=== PATIENT | male | born 1955 | race Caucasian/White ===

== ENCOUNTER 2021-03-23 14:57 | Inpatient (IN) | payer MEDICARE, OTHER ==
[~2021-03-23] VITALS: Ht 177.8 cm; Wt 91.6 kg
[2021-03-23 16:03] LABS: BASOPHILS # (AUTO) 0.1 /CMM (0.0-0.2); BASOPHILS % (AUTO) 0.6 % (0.0-2.0); EOSINOPHILS % (AUTO) 0.6 % (0.0-6.0); HEMATOCRIT 45 % (39-51); HEMOGLOBIN 15.1 g/dL (13.5-17.5); LYMPHOCYTES # (AUTO) 1.7 /CMM (0.8-4.8); LYMPHOCYTES % (AUTO) 17.1 % (20.0-44.0); MEAN CORPUSCULAR HGB CONC 33 g/dl (31.0-36.0); MEAN CORPUSCULAR VOLUME 93 fL (80-96); MONOCYTES # (AUTO) 0.5 /CMM (0.1-1.30); MONOCYTES % (AUTO) 5.5 % (2.0-12.0); NEUTROPHILS # (AUTO) 7.4 /CMM (1.8-8.9); NEUTROPHILS % (AUTO) 76.2 % (43.0-81.0); PLATELET COUNT (AUTO) 168 /CMM (150-450); RED BLOOD CELL COUNT(AUTO) 4.91 MIL/uL (4.5-6.0); WHITE BLOOD COUNT (AUTO) 9.7 K/uL (4.3-11.0)
[2021-03-23 16:16] LABS: CALCIUM, SERUM 9.6 mg/dL (8.5-10.1); POTASSIUM 3.4 mmol/L (3.5-5.1)
[2021-03-23 16:23] LABS: ALBUMIN 4.2 g/dL (3.4-5.0); BILIRUBIN,DIRECT 0.2 mg/dL (0.0-0.2); BILIRUBIN,TOTAL 0.7 mg/dL (0.2-1.0); TOTAL PROTEIN, SERUM 7.6 g/dL (6.4-8.2)
[2021-03-23] MEDS ORDERED: PANTOPRAZOLE 40 MG VIAL ONE (16:25)
[2021-03-23] MEDS ORDERED: ASPIRIN 81 MG TAB.CHEW ONE ×2 (16:25→16:28)
[2021-03-23] MEDS ORDERED: ASPIRIN 81 MG TAB.CHEW PO ONE (16:30)
[2021-03-23] MEDS ORDERED: PANTOPRAZOLE 40 MG VIAL IV ONE (16:30)
[2021-03-23] MEDS ORDERED: ASPIRIN 325 MG TABLET PO ONE (16:30)
[2021-03-23] MEDS ORDERED: POTASSIUM CHLORIDE 20 MEQ TAB.PRT.SR PO ONE ×2 (16:30→16:57)
[2021-03-23] MEDS ORDERED: NITROGLYCERIN PACKET 1 GM PACKET TOP ONE (16:30)
[2021-03-23] MEDS ORDERED: LISI40TA13 PO (16:52)
[2021-03-23] MEDS ORDERED: HYDR12.55 PO (16:52)
[2021-03-23] MEDS ORDERED: FLUT1BLS6 INH (16:52)
[2021-03-23] MEDS ORDERED: PRIM50TA27 PO (16:52)
[2021-03-23] MEDS ORDERED: OMEP40CA21 PO (16:52)
[2021-03-23] MEDS ORDERED: ESCI10TA PO (16:52)
[2021-03-23] MEDS ORDERED: NITROGLYCERIN PACKET 1 GM PACKET ONE (16:56)
[2021-03-23] MEDS ORDERED: ENOXAPARIN SODIUM 80 MG/0.8 ML DISP.SYRIN SQ ONE (17:00)
[2021-03-23 17:05] LABS: BILIRUBIN,URINE NEGATIVE (NEGATIVE); COLOR,URINE YELLOW (YELLOW); LEUKOCYTE ESTERASE ,URINE NEGATIVE (NEGATIVE); NITRITE, URINE NEGATIVE (NEGATIVE); PROTEIN,URINE 30 mg/dl (NEGATIVE); UGLUCOSE NEGATIVE (NEGATIVE); UROBILINOGEN,URINE 0.2 EU/dL (0.2)
[2021-03-23 17:19] LABS: BACTERIA,URINE None seen /HPF (None Seen); MUCUS,URINE Few /LPF (None Seen); SQUAMOUS EPITHELIAL CELL,UR Few /HPF (None Seen)
[2021-03-23] MEDS ORDERED: ENOXAPARIN SODIUM 100 MG/ML DISP.SYRIN SQ ONE (17:26)
[2021-03-23] MEDS ORDERED: ACETAMINOPHEN 325 MG TABLET PO PRN (18:30)
[2021-03-23] MEDS ORDERED: HYDROCODONE/APAP 5/325MG TABLET PO PRN (18:30)
[2021-03-23] MEDS ORDERED: Z GUARD REMEDY 2 OZ OINT TP PRN (18:30)
[2021-03-23] MEDS ORDERED: ZOLPIDEM TARTRATE 5 MG TABLET PO PRN (18:30)
[2021-03-23] MEDS ORDERED: ONDANSETRON HCL/PF 4 MG/2 ML VIAL IVP PRN (18:30)
[2021-03-23] MEDS ORDERED: MORPHINE SULFATE INJ 2 MG/ML DISP.SYRIN IV PRN (18:30)
[2021-03-23] MEDS ORDERED: MAG HYDROX/AL HYDROX/SIMETH 30 ML UDC PO PRN (18:30)
[2021-03-23] MEDS ORDERED: MAGNESIUM HYDROXIDE 30 ML UDC PO PRN (18:30)
[2021-03-23] MEDS: METOPROLOL TARTRATE 25 MG TABLET PO SCH (20:07)
[2021-03-23 20:23] VITALS: BP 125/86
[2021-03-23] MEDS: NITROGLYCERIN PACKET 1 GM PACKET TOP SCH (22:20)
[2021-03-24] VITALS (20 sets, daily range): BP systolic 98–166; BP diastolic 47–84
[2021-03-24 06:34] LABS: BASOPHILS % (AUTO) 0.5 % (0.0-2.0); EOSINOPHILS % (AUTO) 1.8 % (0.0-6.0); HEMATOCRIT 41 % (39-51); HEMOGLOBIN 14.2 g/dL (13.5-17.5); LYMPHOCYTES # (AUTO) 2.1 /CMM (0.8-4.8); LYMPHOCYTES % (AUTO) 24.1 % (20.0-44.0); MEAN CORPUSCULAR HGB CONC 34 g/dl (31.0-36.0); MEAN CORPUSCULAR VOLUME 92 fL (80-96); MONOCYTES # (AUTO) 0.8 /CMM (0.1-1.30); MONOCYTES % (AUTO) 8.8 % (2.0-12.0); NEUTROPHILS # (AUTO) 5.6 /CMM (1.8-8.9); NEUTROPHILS % (AUTO) 64.8 % (43.0-81.0); PLATELET COUNT (AUTO) 164 /CMM (150-450); WHITE BLOOD COUNT (AUTO) 8.6 K/uL (4.3-11.0)
[2021-03-24] MEDS ORDERED: ENOXAPARIN SODIUM 100 MG/ML DISP.SYRIN SQ SCH (07:00)
[2021-03-24 07:19] LABS: CALCIUM, SERUM 9.1 mg/dL (8.5-10.1); MAGNESIUM 1.7 mg/dL (1.8-2.4); PHOSPHORUS 2.9 mg/dL (2.5-4.9); POTASSIUM 4.1 mmol/L (3.5-5.1)
[2021-03-24] MEDS ORDERED: Magnesium 1GM/D5W 100ML PREMIX 100 ML IV SCH (08:00)
[2021-03-24] MEDS: ESCITALOPRAM OXALATE (10 MG) 10 MG TABLET PO SCH (08:36)
[2021-03-24] MEDS: PANTOPRAZOLE 40 MG TABLET.DR PO SCH (08:36)
[2021-03-24] MEDS: LISINOPRIL (20MG) 20 MG TABLET PO SCH (08:40)
[2021-03-24] MEDS ORDERED: ASPIRIN 325 MG TABLET PO SCH (09:00)
[2021-03-24] MEDS: METOPROLOL TARTRATE 25 MG TABLET PO SCH ×2 (09:00→17:51)
[2021-03-24] MEDS ORDERED: PRIMIDONE 50 MG TABLET PO SCH (09:00)
[2021-03-24] MEDS: FLUTICASONE/VILANTEROL 1 EACH BLST.W.DEV IH SCH (10:00)
[2021-03-24] MEDS: NITROGLYCERIN PACKET 1 GM PACKET TOP SCH ×2 (10:31→17:52)
[2021-03-24] MEDS ORDERED: IODIXANOL 150 ML IV ONE (11:00)
[2021-03-24] MEDS ORDERED: IV NS 0.9% 1,000 ML ONE (11:00)
[2021-03-24] MEDS ORDERED: LIDOCAINE HCL/PF 1% 30 ML SDV ONE (11:00)
[2021-03-24] MEDS: Magnesium 1GM/D5W 100ML PREMIX 100 ML IV SCH ×2 (11:14→15:15)
[2021-03-24] MEDS ORDERED: FENTANYL PF 100MCG/2ML AMPUL ONE (11:36)
[2021-03-24] MEDS ORDERED: MIDAZOLAM HCL 2 MG/2ML VIAL ONE (11:36)
[2021-03-24] MEDS ORDERED: LIDOCAINE HCL/MPF 1% 30 ML VIAL IJ ONE (11:37)
[2021-03-24] MEDS ORDERED: HEPARIN SODIUM, PORCINE 5000 UNITS/1 ML VIAL ONE (12:39)
[2021-03-24] MEDS ORDERED: HEPARIN SODIUM, PORCINE 1,000 UNIT/ML VIAL ONE (12:40)
[2021-03-24] MEDS ORDERED: TICAGRELOR 90 MG TABLET PO ONE (12:54)
[2021-03-24] MEDS ORDERED: IV NS 0.9% 1,000 ML IV PRN (14:30)
[2021-03-24] MEDS: ASPIRIN EC 81 MG TABLET.DR PO SCH (15:16)
[2021-03-24] MEDS ORDERED: CLOPIDOGREL BISULFATE 75 MG TABLET PO ONE (20:00)
[2021-03-24] MEDS: PRIMIDONE 50 MG TABLET PO SCH (21:25)
[2021-03-25] VITALS (16 sets, daily range): BP systolic 95–126; BP diastolic 50–79
[2021-03-25 04:23] LABS: BASOPHILS # (AUTO) 0.1 /CMM (0.0-0.2); BASOPHILS % (AUTO) 0.8 % (0.0-2.0); EOSINOPHILS % (AUTO) 2.8 % (0.0-6.0); HEMATOCRIT 41 % (39-51); HEMOGLOBIN 13.6 g/dL (13.5-17.5); LYMPHOCYTES # (AUTO) 2.5 /CMM (0.8-4.8); LYMPHOCYTES % (AUTO) 34.3 % (20.0-44.0); MEAN CORPUSCULAR HGB CONC 33 g/dl (31.0-36.0); MEAN CORPUSCULAR VOLUME 92 fL (80-96); MONOCYTES # (AUTO) 0.7 /CMM (0.1-1.30); MONOCYTES % (AUTO) 10.3 % (2.0-12.0); NEUTROPHILS # (AUTO) 3.8 /CMM (1.8-8.9); NEUTROPHILS % (AUTO) 51.8 % (43.0-81.0); PLATELET COUNT (AUTO) 147 /CMM (150-450); RED BLOOD CELL COUNT(AUTO) 4.41 MIL/uL (4.5-6.0); WHITE BLOOD COUNT (AUTO) 7.3 K/uL (4.3-11.0)
[2021-03-25 04:34] LABS: CALCIUM, SERUM 8.5 mg/dL (8.5-10.1); MAGNESIUM 1.6 mg/dL (1.8-2.4); POTASSIUM 3.8 mmol/L (3.5-5.1)
[2021-03-25] MEDS: FLUTICASONE/VILANTEROL 1 EACH BLST.W.DEV IH SCH (08:42)
[2021-03-25] MEDS: ASPIRIN EC 81 MG TABLET.DR PO SCH (08:42)
[2021-03-25] MEDS: LISINOPRIL (20MG) 20 MG TABLET PO SCH (08:42)
[2021-03-25] MEDS: CLOPIDOGREL BISULFATE 75 MG TABLET PO SCH (08:43)
[2021-03-25] MEDS: ESCITALOPRAM OXALATE (10 MG) 10 MG TABLET PO SCH (08:43)
[2021-03-25] MEDS: METOPROLOL TARTRATE 25 MG TABLET PO SCH ×2 (08:43→16:35)
[2021-03-25] MEDS: PANTOPRAZOLE 40 MG TABLET.DR PO SCH (08:44)
[2021-03-25] MEDS: NITROGLYCERIN PACKET 1 GM PACKET TOP SCH ×2 (08:44→16:36)
[2021-03-25] MEDS: Magnesium 1GM/D5W 100ML PREMIX 100 ML IV SCH ×2 (11:30→11:39)
[2021-03-25] MEDS: PRIMIDONE 50 MG TABLET PO SCH (21:43)
[2021-03-26] VITALS: BP 111/62
[2021-03-26 04:00] VITALS: BP 108/67
[2021-03-26 05:16] VITALS: BP 111/62
[2021-03-26 05:18] VITALS: BP 108/67
[2021-03-26 06:07] LABS: BASOPHILS # (AUTO) 0.1 /CMM (0.0-0.2); BASOPHILS % (AUTO) 0.8 % (0.0-2.0); EOSINOPHILS % (AUTO) 3.6 % (0.0-6.0); HEMATOCRIT 40 % (39-51); HEMOGLOBIN 13.5 g/dL (13.5-17.5); LYMPHOCYTES # (AUTO) 2.1 /CMM (0.8-4.8); LYMPHOCYTES % (AUTO) 31.5 % (20.0-44.0); MEAN CORPUSCULAR HGB CONC 34 g/dl (31.0-36.0); MEAN CORPUSCULAR VOLUME 92 fL (80-96); MONOCYTES # (AUTO) 0.7 /CMM (0.1-1.30); MONOCYTES % (AUTO) 10.8 % (2.0-12.0); NEUTROPHILS # (AUTO) 3.6 /CMM (1.8-8.9); NEUTROPHILS % (AUTO) 53.3 % (43.0-81.0); PLATELET COUNT (AUTO) 149 /CMM (150-450); RED BLOOD CELL COUNT(AUTO) 4.33 MIL/uL (4.5-6.0); WHITE BLOOD COUNT (AUTO) 6.8 K/uL (4.3-11.0)
[2021-03-26 06:27] LABS: CALCIUM, SERUM 8.7 mg/dL (8.5-10.1); CREATININE 0.9 mg/dL (0.6-1.3); MAGNESIUM 1.7 mg/dL (1.8-2.4); PHOSPHORUS 3.9 mg/dL (2.5-4.9)
[2021-03-26 08:00] VITALS: BP 102/69
[2021-03-26] MEDS ORDERED: CLOP75TA15 PO (08:36)
[2021-03-26] MEDS ORDERED: ASPI-1420 PO (08:36)
[2021-03-26] MEDS ORDERED: METO25TA20 PO (08:36)
[2021-03-26] MEDS: ESCITALOPRAM OXALATE (10 MG) 10 MG TABLET PO SCH (08:53)
[2021-03-26] MEDS: PANTOPRAZOLE 40 MG TABLET.DR PO SCH (08:53)
[2021-03-26] MEDS: CLOPIDOGREL BISULFATE 75 MG TABLET PO SCH (08:53)
[2021-03-26] MEDS: ASPIRIN EC 81 MG TABLET.DR PO SCH (08:53)
[2021-03-26] MEDS: FLUTICASONE/VILANTEROL 1 EACH BLST.W.DEV IH SCH (08:53)
[2021-03-26 08:54] VITALS: BP 102/69
[2021-03-26] MEDS: LISINOPRIL (20MG) 20 MG TABLET PO SCH (08:54)
[2021-03-26] MEDS ORDERED: MAGNESIUM OXIDE 400 MG TABLET PO ONE (11:00)
== END 2021-03-26 11:45 | disposition home or self-care (01) | DRG 246 ==
LOC: ER 15:53 → TELE 18:41 → ICU 03-24 13:29 → TELE 03-25 11:05
PROVIDERS: ADMIT Internal Medicine; ATTEND Internal Medicine
PROC: 027035Z Dilation of Coronary Artery, One Artery with Two Drug-eluting Intraluminal Devices, Percutaneous Approach (ICD-10-PCS; principal; 2021-03-24)
PROC: 4A023N7 Measurement of Cardiac Sampling and Pressure, Left Heart, Percutaneous Approach (ICD-10-PCS; 2021-03-24)
PROC: B211YZZ Fluoroscopy of Multiple Coronary Arteries using Other Contrast (ICD-10-PCS; 2021-03-24)
DX: I25.10 Atherosclerotic heart disease of native coronary artery without angina pectoris (principal); I21.4 Non-ST elevation (NSTEMI) myocardial infarction; E87.6 Hypokalemia; E11.9 Type 2 diabetes mellitus without complications; I10 Essential (primary) hypertension; E83.42 Hypomagnesemia; F17.210 Nicotine dependence, cigarettes, uncomplicated; F32.9 Major depressive disorder, single episode, unspecified; G40.909 Epilepsy, unspecified, not intractable, without status epilepticus
CPT/HCPCS: 36415; 71045-TC; 80048-TC; 80061-TC; 80076-TC; 81001; 83690-TC; 83735-TC; 84100-TC; 84484-TC; 85025-TC; 85730-TC; 87081-TC; 92980; 93307-TC; C1725; C1769; C9113; C9803; G0378; G0500; J1644; J1650; J2250; J3010; J3475; J3490; J7030; J7050; Q9967

== ENCOUNTER 2021-07-17 10:10 | Emergency (ER) | payer MEDICARE, OTHER ==
[~2021-07-17] VITALS: Ht 177.8 cm; Wt 88.9 kg
[~2021-07-17 10:10] MED LIST: ASPI-1420 PO; CLOP75TA15 PO; ESCI10TA PO; FLUT1BLS6 INH; HYDR12.55 PO; LISI40TA13 PO; METO25TA20 PO; OMEP40CA21 PO; PRIM50TA27 PO
--- NOTE | 2021-07-17 10:50 | NUR ---
pt rec'd to er c/o pain lower back sent to ct monitors applied
[2021-07-17] MEDS ORDERED: HYDR-3976 GT (12:06)
--- NOTE | 2021-07-17 12:11 | NUR ---
Patient discharged to home in stable condition. Written and verbal after care instructions given. Patient verbalizes understanding of instruction.PT. VERBALIZED UNDERSTANDING OF AFTERCARE INSTRUCTIONS.
[2021-07-17 12:13] VITALS: BP 144/76
== END 2021-07-17 12:13 | disposition home or self-care (01) ==
LOC: ER 10:15
DX: S22.42XA Multiple fractures of ribs, left side, initial encounter for closed fracture (principal); I10 Essential (primary) hypertension; E11.9 Type 2 diabetes mellitus without complications; Z79.899 Other long term (current) drug therapy; Z79.82 Long term (current) use of aspirin; W01.0XXA Fall on same level from slipping, tripping and stumbling without subsequent striking against object, initial encounter; Y93.89 Activity, other specified; Y92.89 Other specified places as the place of occurrence of the external cause; Y99.8 Other external cause status
CPT/HCPCS: 71250-TC

== ENCOUNTER 2022-01-22 20:54 | Inpatient (IN) | payer MEDICARE, OTHER ==
[~2022-01-22] VITALS: Ht 177.8 cm; Wt 91.6 kg
[~2022-01-22 20:54] MED LIST changes: +HYDR-3976 GT
--- NOTE | 2022-01-22 21:35 | NUR ---
TO ER BED 2. TELMA C/O FOREHEAD LAC S/P GLF, -KO APPROX 1 HOUR AGO. PT STATES "DOES NOT REMEMBER HOW HE FELL". DENIES ANY PAIN AT THIS TIME . LAC IS WELL APPROX. 1 INCH IN LENGTH, ACTIVELY BLEEDING. UNK DATE TDAP.
--- NOTE | 2022-01-22 21:48 | NUR ---
18G IV LINE ESTABLISHED AT [facility]. BLOOD DRAWN AND SENT TO LAB.
[2022-01-22] MEDS ORDERED: IV NS 0.9% 1,000 ML BAG IV ONE (22:00)
[2022-01-22 22:02] LABS: BASOPHILS # (AUTO) 0.1 K/uL (0.0-0.2); BASOPHILS % (AUTO) 0.8 % (0.0-2.0); HEMATOCRIT 42 % (39-51); LYMPHOCYTES # (AUTO) 1.9 K/uL (0.8-4.8); LYMPHOCYTES % (AUTO) 28.4 % (20.0-44.0); MEAN CORPUSCULAR HGB CONC 34 g/dl (31.0-36.0); MEAN CORPUSCULAR VOLUME 91 fL (80-96); MONOCYTES # (AUTO) 0.3 K/uL (0.1-1.30); MONOCYTES % (AUTO) 4.9 % (2.0-12.0); NEUTROPHILS # (AUTO) 4.3 K/uL (1.8-8.9); NEUTROPHILS % (AUTO) 63.9 % (43.0-81.0); PLATELET COUNT (AUTO) 160 K/uL (150-450); RED BLOOD CELL COUNT(AUTO) 4.57 MIL/uL (4.5-6.0); WHITE BLOOD COUNT (AUTO) 6.7 K/uL (4.3-11.0)
--- NOTE | 2022-01-22 22:22 | NUR ---
URINE COLLECTED AND SENT TO LAB
[2022-01-22 22:24] LABS: CALCIUM, SERUM 8.7 mg/dL (8.5-10.1); CARBON DIOXIDE 26 mmol/L (21-32); CHLORIDE 100 mmol/L (98-107); CREATININE 1.3 mg/dL (0.6-1.3); GLUCOSE 84 mg/dL (74-106); POTASSIUM 3.6 mmol/L (3.5-5.1); SODIUM SERUM 134 mmol/L (136-145); UREA NITROGEN, BLOOD 14 mg/dL (7-18)
[2022-01-22 22:30] LABS: ALANINE AMINOTRANSFERASE 21 U/L (12-78); ALKALINE PHOSPHATASE 58 U/L (46-116); ASPARTATE AMINOTRANSFERASE 16 U/L (15-37); BILIRUBIN,DIRECT 0.2 mg/dL (0.0-0.2); BILIRUBIN,TOTAL 0.5 mg/dL (0.2-1.0)
--- NOTE | 2022-01-22 22:30 | NUR ---
PT TO CT VIA SARAH BETH
--- NOTE | 2022-01-22 23:11 | NUR ---
COVID SWAB COLLECTED AND SENT TO LAB
--- NOTE | 2022-01-23 03:06 | NUR ---
REPORT GIVEN TO NILS
[2022-01-23] MEDS ORDERED: MAGNESIUM HYDROXIDE 30 ML UDC PO PRN (04:30)
[2022-01-23] MEDS ORDERED: Z GUARD REMEDY 4 OZ OINT TP PRN (04:30)
[2022-01-23] MEDS ORDERED: MAG HYDROX/AL HYDROX/SIMETH 30 ML UDC PO PRN (04:30)
[2022-01-23] MEDS ORDERED: ACETAMINOPHEN 325 MG TABLET PO PRN (04:30)
[2022-01-23] MEDS ORDERED: ONDANSETRON HCL/PF 4 MG/2 ML VIAL IVP PRN (04:30)
[2022-01-23] MEDS ORDERED: HYDROCODONE/APAP 5/325MG TABLET PO PRN (04:30)
[2022-01-23 05:00] VITALS: BP 124/76
--- NOTE | 2022-01-23 05:00 | NUR ---
VISUAL SUPERVISORSTACK MATCHER NOTES SB-54 ON TELE MONITOR,RECEIVED FROM ER PER SARAH BETH THIS 66 Y.O. MALE,ALERT,ORIENTED X2-3,WITH EPISODE OF CONFUSION,S/P FALL AT HOME ANS SUSTAINED LACERATION ON LEFT FOREHEAD,SUTURED IN ER,SLIGHT SWELLING,PAIN 3/10.WITH KNOWN HX OF ETOH ABUSE,AMBULATE WITH STEADY GAITWITH SALINE LOCK RIGHT AC INTACT AND PATENT.DENIES DIZZINESS.POSITIVE FOR CANNABIS,FALL PRECAUTION OBSERVED,BED ON LOWEST POSITION AND LOCKED,BED ALARM.ENDORSE TO DAY NURSE FOR RAYMOND.
--- NOTE | 2022-01-23 05:00 | NUR ---
PT TRANSPORTED TO [id number] ON SOFA BACK UPHOLSTERER PER ACLS.
--- NOTE | 2022-01-23 08:00 | NUR ---
RN OPENING NOTE PATIENT RECEIVED IN BED, AO X 2-3, ABLE TO RESPONDS ALL STIMULI. IN NO ACUTE DISTRESS NOTED. RESPIRATORY EVEN AND UNLABORED ON ROOM. SKIN IS WARM TO TOUCH, KEEP CLEAN/DRY, INTACT IV SITE. KEPT ELEVATED HOB FOR ENSURE AIRWAY AND ASPIRATION PRECAUTION, ALSO LOWEST POSITION OF THE BED, S/R UP X 2, ALL SAFETY PRECAUTION APPLIED. CALL LIGHT WITHIN REACH, WILL CONTINUE TO MONITOR.
[2022-01-23] MEDS: ASPIRIN EC 81 MG TABLET.DR PO SCH (08:40)
[2022-01-23] MEDS: LISINOPRIL (10MG) 10 MG TABLET PO SCH (08:40)
[2022-01-23] MEDS: ESCITALOPRAM OXALATE (10 MG) 10 MG TABLET PO SCH (08:40)
[2022-01-23] MEDS: CLOPIDOGREL BISULFATE 75 MG TABLET PO SCH (08:40)
[2022-01-23] MEDS: PRIMIDONE 50 MG TABLET PO SCH (08:41)
[2022-01-23] MEDS: PANTOPRAZOLE 40 MG TABLET.DR PO SCH (08:42)
[2022-01-23] MEDS ORDERED: HYDROCODONE/APAP 7.5/325MG 1 EACH TABLET GT SCH (09:00)
[2022-01-23 15:00] VITALS: BP_SYST 125; BP_SYST 126; BP_SYST 130; BP_DIAS 61; BP_DIAS 64; BP_DIAS 71
--- NOTE | 2022-01-23 15:00 | NUR ---
ORTHOSTATIC BP DONE, DOCUMENTED ON INTERVENTION V/S.
[2022-01-23] MEDS: FLUTICASONE/VILANTEROL 1 EACH BLST.W.DEV IH SCH (16:29)
--- NOTE | 2022-01-23 18:53 | NUR ---
RN CLOSE NOTE PATIENT IN BED, IN NO ACUTE DISTRESS OBSERVED. RESPIRATION EVEN AND UNLABORED ON ROOM AIR. SKIN IS WARM TO TOUCH KEEP CLEAN//DRY, INTACT IV SITE, ORAL CARE PROVIDED. KEPT ELEVATED HOB FOR ENSURE AIRWAY AND ASPIRATION PRECAUTION. ALSO LOWEST POSITION OF THE BED FOR SAFETY. CALL LIGHT WITHIN REACH, WILL ENDORSE TO AIR INTERCEPT CONTROLLER.
--- NOTE | 2022-01-23 19:45 | NUR ---
Patient is A&Ox4. SB on the monitorat 47bpm currently. States he feels no hangover or alcohol withdrawal symptoms. Neurocheck WNL. Denies any dizziness or lightheadedness. Pt. says only thing he feels is pain when forehead is touched near laceration site. Educated pt. not to touch to prevent infection. RAC #18G flushed and patent. Will continue to monitor patient.
[2022-01-23 20:00] VITALS: BP 129/69
[2022-01-24] VITALS: BP 135/64
[2022-01-24 04:00] VITALS: BP 127/69
[2022-01-24 06:10] LABS: BASOPHILS % (AUTO) 0.4 % (0.0-2.0); EOSINOPHILS % (AUTO) 1.8 % (0.0-6.0); HEMATOCRIT 40 % (39-51); HEMOGLOBIN 13.8 g/dL (13.5-17.5); LYMPHOCYTES # (AUTO) 2.8 K/uL (0.8-4.8); LYMPHOCYTES % (AUTO) 35.7 % (20.0-44.0); MEAN CORPUSCULAR HGB CONC 35 g/dl (31.0-36.0); MEAN CORPUSCULAR VOLUME 90 fL (80-96); MONOCYTES # (AUTO) 0.6 K/uL (0.1-1.30); MONOCYTES % (AUTO) 7.4 % (2.0-12.0); NEUTROPHILS # (AUTO) 4.3 K/uL (1.8-8.9); NEUTROPHILS % (AUTO) 54.7 % (43.0-81.0); PLATELET COUNT (AUTO) 159 K/uL (150-450); RED BLOOD CELL COUNT(AUTO) 4.44 MIL/uL (4.5-6.0); WHITE BLOOD COUNT (AUTO) 7.8 K/uL (4.3-11.0)
[2022-01-24] MEDS: PANTOPRAZOLE 40 MG TABLET.DR PO SCH (06:32)
--- NOTE | 2022-01-24 06:32 | NUR ---
CLOSING RN NOTES Patient has been A&Ox4. Slept well overnight. Is now awake in bed in no signs of distress. Denies any withdrawal symptoms still. Has been SB 40s to low 50s overnight with short-lived episodes of HR in the 30s. Other VS WNL. RAC #18G still intact and patent. Neurochecks at baseline.
--- NOTE | 2022-01-24 06:40 | NUR ---
mrsa swab collected put in biohazard fridge
[2022-01-24 07:01] LABS: CALCIUM, SERUM 8.7 mg/dL (8.5-10.1); CREATININE 0.9 mg/dL (0.6-1.3); MAGNESIUM 1.6 mg/dL (1.8-2.4); PHOSPHORUS 2.3 mg/dL (2.5-4.9); POTASSIUM 3.1 mmol/L (3.5-5.1)
[2022-01-24 07:09] LABS: THYROID STIMULATING HORMONE 1.619 uIU/mL (0.358-3.74)
--- NOTE | 2022-01-24 07:30 | NUR ---
PT RECEIVED RESTING COMFORTABLY IN BED. NO S/S OR C/O PAIN OR DISTRESS NOTED. SIDE RAILS UP X2, CALL LIGHT LEFT WITHIN REACH. WILL CONTINUE PLAN OF CARE.
[2022-01-24 08:00] VITALS: BP_SYST 136; BP_SYST 139; BP_SYST 157; BP_DIAS 78; BP_DIAS 86; BP_DIAS 89
[2022-01-24] MEDS ORDERED: POTASSIUM CL. PREMIX PERIPHER. 50 ML IV SCH (08:00)
[2022-01-24] MEDS: Magnesium 1GM/D5W 100ML PREMIX 100 ML IV SCH ×3 (08:30→11:30)
[2022-01-24] MEDS: FLUTICASONE/VILANTEROL 1 EACH BLST.W.DEV IH SCH (08:32)
[2022-01-24] MEDS: CLOPIDOGREL BISULFATE 75 MG TABLET PO SCH (08:33)
[2022-01-24] MEDS: LISINOPRIL (10MG) 10 MG TABLET PO SCH (08:33)
[2022-01-24] MEDS: ASPIRIN EC 81 MG TABLET.DR PO SCH (08:33)
[2022-01-24] MEDS: PRIMIDONE 50 MG TABLET PO SCH (08:33)
[2022-01-24] MEDS: ESCITALOPRAM OXALATE (10 MG) 10 MG TABLET PO SCH (08:33)
[2022-01-24] MEDS: NEUTRA PHOS 1 POWD.PACKET PO SCH ×2 (09:54→17:48)
[2022-01-24] MEDS: POTASSIUM CHLORIDE 20 MEQ TAB.PRT.SR PO SCH ×3 (10:02→11:50)
--- NOTE | 2022-01-24 19:15 | NUR ---
MS RN OPENING NOTES: RECEIVED PATIENT IN BED, AWAKE, A/O X4. NO S/S OF DISTRESS NOTED. NO COMPLAIN OF PAIN. CALL LIGHT WITHIN REACH. BED IN LOWEST AND LOCKED POSITION. INSTRUCTED PATIENT TO CALL FOR ASSISTANCE WHEN OOB, PATIENT VERBALIZED UNDERSTANDING. WITH LEFT FOREHEAD LACERATION, NO DRAINAGE NOTED, OPEN TO AIR. WITH SON AT THE BEDSIDE.
--- NOTE | 2022-01-24 19:28 | NUR ---
CHANGE OF SHIFT REPORT PT RESTING COMFORTABLY IN BED. NO S/S OR C/O PAIN OR DISTRESS NOTED. SIDE RAILS UP X2, CALL LIGHT LEFT WITHIN REACH. PT KEPT CLEAN, DRY, AND COMFORTABLE. NO SIGNIFICANT CHANGES SINCE PREVIOUS SHIFT.
[2022-01-24 20:00] VITALS: BP 121/79
[2022-01-25 07:04] LABS: CALCIUM, SERUM 8.9 mg/dL (8.5-10.1); CREATININE 0.9 mg/dL (0.6-1.3); MAGNESIUM 1.8 mg/dL (1.8-2.4); POTASSIUM 3.8 mmol/L (3.5-5.1)
[2022-01-25 07:06] LABS: BASOPHILS % (AUTO) 0.6 % (0.0-2.0); EOSINOPHILS % (AUTO) 2.7 % (0.0-6.0); HEMATOCRIT 41 % (39-51); HEMOGLOBIN 14.1 g/dL (13.5-17.5); LYMPHOCYTES # (AUTO) 2.2 K/uL (0.8-4.8); LYMPHOCYTES % (AUTO) 33.6 % (20.0-44.0); MEAN CORPUSCULAR HGB CONC 34 g/dl (31.0-36.0); MEAN CORPUSCULAR VOLUME 90 fL (80-96); MONOCYTES # (AUTO) 0.5 K/uL (0.1-1.30); MONOCYTES % (AUTO) 8.1 % (2.0-12.0); NEUTROPHILS # (AUTO) 3.5 K/uL (1.8-8.9); PLATELET COUNT (AUTO) 158 K/uL (150-450); RED BLOOD CELL COUNT(AUTO) 4.57 MIL/uL (4.5-6.0); WHITE BLOOD COUNT (AUTO) 6.4 K/uL (4.3-11.0)
--- NOTE | 2022-01-25 07:45 | NUR ---
RN OPENING NOTE PATIENT IN BED RESTING, AWAKE, A/O X4. NO S/S OF PAIN NOTED AT THIS TIME. ON ROOM AIR, NO DISTRESS OR SHORTNESS OF BREATH NOTED. IV ACCESS RAC #18G, INTACT, PATENT AND FLUSHING WELL. FALL AND SAFETY MEASURES IN PLACE, BED ALARM ON, BED IN LOW AND LOCK POSITION, CALL LIGHT AND TABLE WITHIN EASY REACH, SIDE RAILS UP X2. WILL CONTINUE TO MONITOR
[2022-01-25 08:51] VITALS: BP 125/79
[2022-01-25] MEDS: PANTOPRAZOLE 40 MG TABLET.DR PO SCH (08:51)
[2022-01-25] MEDS: LISINOPRIL (10MG) 10 MG TABLET PO SCH (08:51)
[2022-01-25] MEDS: CLOPIDOGREL BISULFATE 75 MG TABLET PO SCH (08:52)
[2022-01-25] MEDS: ASPIRIN EC 81 MG TABLET.DR PO SCH (08:52)
[2022-01-25] MEDS: ESCITALOPRAM OXALATE (10 MG) 10 MG TABLET PO SCH (08:52)
[2022-01-25] MEDS: FLUTICASONE/VILANTEROL 1 EACH BLST.W.DEV IH SCH ×2 (08:53→09:00)
[2022-01-25] MEDS: PRIMIDONE 50 MG TABLET PO SCH (08:53)
--- NOTE | 2022-01-25 16:00 | NUR ---
ALARM MECHANIC NOTE PATIENT DISCHARGE IN MEDICAL STABLE CONDITION, A/O X4. V/S TAKEN, STABLE AND RECORDED. NO IV ACCESS. SKIN ASSESSMENT DONE, SKIN INTACT EXCEPT FOR FOREHEAD LACERATION, PICTURE TAKEN. NAME ARM BAND REMOVED. ALL BELONGINGS CHECKED AND SIGNED. HEALTH TEACHING AND DISCHARGE INSTRUCTIONS GIVEN TO PATIENT, VERBALIZED UNDERSTANDING. PATIENT LEFT UNIT AMBULATING WITH NO SIGNS OF DISTRESS, ACCOMPANIED BY RN TO THE LOBBY. PATIENT WENT HOME WITH . ALCOHOL ABUSE RESOURCES AND EDUCATIONAL INFORMATION WAS PROVIDED TO PATIENT. CHARGE NURSE AWARE OF DISCHARGE.
--- NOTE | 2022-01-25 16:54 | NUR ---
SS Consult: SS consult requested by patient's son for alcohol abuse. The pt. is a 66 year old male who was BIB son after ground level fall and forehead laceration. The pt. is alert & oriented x 4 and makes good eye contact. The pt.'s was at bedside. The pt. has euthymic mood and affect. Pt. denies SI/HI and denies hallucinations. Per toxicology report pt. tested positive for alcohol and Cannabinoids. cut in worker provided support with motivational interviewing, education regarding opioid dependence, brief intervention and referral to treatment. Pt. refused referral for alcohol rehab and stating drinking is not a problem anymore for him. Pt. states he only drinks sometimes. Pt. is in denial that it is a problem for him. pt. stated he feel because he was intoxicated. provided addiction and mental health resources and he accepted them. Pt. will be discharging home with . ADDICTION RESOURCES For Drugs and Alcohol [facility] Substance Abuse Helpline([facility] Outpatient treatment, residential treatment, recovery support for youth and adults [facility] www.AR[employer] BioSciencesfamilycounselingSpark Authors [facility] Teen programs for drug/alcohol education and support [facility] [place]. Program for adults, sliding scale provides support and education [place] [employer] [place] www.[facility] MedicalVirtualmin.org New Site; Outpatient/residential treatment programs; transition to sober living [facility] www.cri-help.org [place]; Outpatient and residential treatment programs; transition to sober living [facility] [place] Oliv[place]; Outpatient education and supportive programs for teens and adults [facility] www.oasiswomensrecovery.org [facility]; Residential treatment and work program for females only [place] www.[facility].org [place]: Outpatient/residential treatment program for teens and young adults [place] [facility] [place] www.[facility].org [place] Detox, inpatient, outpatient for adults and youth [facility] [place]; Outpatient programs and referrals to community residential programs. Alcoholics Anonymous -sfv information and meeting and schedules www.aa-intergroup.org Lm-Vmyb-Vxhgudq https://al-anon.org/ [place] support groups for family of alcoholics. Marijuana Anonymous www.madistrict6.org -sfv listing of meetings Narcotics Anonymous www.na.org SOBER LIVING RESOURCES [facility] www.soberhousing.net A non-profit agency that provides resources to recovery and sober living homes throughout [place], [place], [place] Sober Living Homes: A Work in Progress, [facility] Recovery Advocates, [facility] Womens Sober Living Homes: [facility] x [phone] [place], [place] [facility] Sober Living Homes: [facility] Counseling--Outpatient [facility] [address], [place] [address] (Specializes in in-depth psychotherapy for emotional distress: anxiety, depression, interpersonal conflicts, life transitions, childhood abuse) [facility] [address] [place] [address] (Assist with solving problem marital difficulties, separation & divorce, aging parents, & grief, chronic & terminal illness) [facility] [address] [place] [address] (Deal with loss & grief, anxiety, marital difficulties) Homebound/Mental Health Services [address] [place] [address] (Provide in-home mental services to people who are incapable of leaving their homes) [facility] for Needs of the Elderly Senior Service/Resource Center [address] [place] [address] [facility] [address] [place], [place] [id number] Mental Health Services Sandhya Hinojosa [place] [address] [place] [address] Services: Outpatient therapy for children, teens, young adults, adults, older adults, and families; Psychiatric services, medication support Psychiatric Outpatient Services [facility] Partial Hospitalization and Intensive Outpatient Program (Managed Care and [place] Only)[address] [facility] [phone] [facility] Partial Hospitalization and Outpatient [id number] [facility] [address] [place], [place] [phone] [facility] Partial Hospitalization and Outpatient [id number] [place], [place] [phone] [facility] [id number]annet [facility] [address] [place], [place] [phone] [facility] Partial Hospitalization and Outpatient [id number] [place], [phone] Crisis and Hotline Telephone Numbers 24-Hour service unless stated [place] Crisis Hotlines: [facility] Mental Health/Crisis Line........[phone] Suicide Prevention Center (24 Hours).......365.175.1781 Suicide Prevention Crisis Center.......303.632.4654 (24 Hours) Assaults Against Women Hotline.........372.887.3216 (24 Hours -- [facility]) Women and Children Crisis Prison...........186.613.2586 (24 Hours) Child Abuse Hotline............371.333.4871 [facility] (24 Hours)..........[phone] Alcoholics Anonymous (24 Hours)..........[phone] Cocaine Anonymous (24 Hours)............135.756.3856 Narcotics Anonymous (24 Hours)..........[phone] [address] [facility] [address], [place] [address]
== END 2022-01-25 16:00 | disposition home or self-care (01) | DRG 40 ==
LOC: ER 20:58 → TELE 01-23 01:06 → MED 01-24 09:56
PROVIDERS: ADMIT Family Medicine; ATTEND Nurse Practitioner Acute Care
PROC: 0KQ00ZZ Repair Head Muscle, Open Approach (ICD-10-PCS; principal; 2022-01-22)
DX: G90.8 Other disorders of autonomic nervous system (principal); G92.9 Unspecified toxic encephalopathy; E87.1 Hypo-osmolality and hyponatremia; F10.229 Alcohol dependence with intoxication, unspecified; E11.9 Type 2 diabetes mellitus without complications; I25.10 Atherosclerotic heart disease of native coronary artery without angina pectoris; I10 Essential (primary) hypertension; E86.1 Hypovolemia; Y90.6 Blood alcohol level of 120-199 mg/100 ml; Z20.822 Contact with and (suspected) exposure to COVID-19; Z79.82 Long term (current) use of aspirin; Z79.02 Long term (current) use of antithrombotics/antiplatelets; Z79.899 Other long term (current) drug therapy; Z79.51 Long term (current) use of inhaled steroids; F32.A Depression, unspecified; F17.200 Nicotine dependence, unspecified, uncomplicated; I25.2 Old myocardial infarction; E83.42 Hypomagnesemia; E87.6 Hypokalemia; R00.1 Bradycardia, unspecified; S01.81XA Laceration without foreign body of other part of head, initial encounter; W07.XXXA Fall from chair, initial encounter; Y92.9 Unspecified place or not applicable; Y99.9 Unspecified external cause status; Z95.5 Presence of coronary angioplasty implant and graft
CPT/HCPCS: 36415; 70450-TC; 71045-TC; 80048-TC; 80061-TC; 80076-TC; 82962-TC; 83735-TC; 84100-TC; 84443-TC; 84484-TC; 85025-TC; 85730-TC; 86850-TC; 87081-TC; 93307-TC; 93880-TC; 97112-TC; 97116-TC; 97530-TC; C9803; G0378; G0480; J3475; J3480; J7030